=== PATIENT | female | born 1980 | race Caucasian/White ===

== ENCOUNTER → 2024-10-26 11:56 | Outpatient (CLI) | payer OTHER, SELFPAY ==
[2024-10-26 19:02] LABS: Add Manual Diff / Slide Review NO; Basophils Absolute Auto 0 /uL (0-100); Basophils Percent Auto 0.5 % (0-2); Eosinophils Absolute Auto 0 /uL (0-450); Eosinophils Percent Auto 0.6 % (2-4); Hematocrit 38.2 % (36-46); Hemoglobin 12.6 g/dL (12.0-16.0); Lymphocytes Absolute Auto 1500 /uL (1100-4500); Lymphocytes Percent Auto 23.6 % (25-40); Mean Corpuscular HGB Conc 32.9 % (30-36); Mean Corpuscular Hemoglobin 31.1 PG (26-34); Mean Corpuscular Volume 94.5 fL (80-100); Monocytes Absolute Auto 500 /uL (0-900); Monocytes Percent Auto 7.6 % (3-14); Neutrophils Absolute Auto 4400 /uL (1500-7000); Neutrophils Percent Auto 67.7 % (50-75); Platelet Count 315 X10^3/uL (150-400); Red Blood Cell Count 4.04 X10^6/uL (4.0-5.2); Red Cell Distribution Width 14.6 % (11.6-14.8); White Blood Cell Count 6.6 X10^3/uL (4.5-11.0)
[2024-10-26 19:29] LABS: HEMOLYSIS < 15 (0-50); Iron 189 ug/dL (37-170)
[2024-10-26 19:33] LABS: Alanine Aminotransferase 12 IU/L (<35); Albumin 4.4 g/dL (3.5-5.0); Albumin Globulin Ratio 1.7 (1.0-2.8); Alkaline Phosphatase 75 U/L (38-126); Aspartate Aminotransferase 32 IU/L (14-36); BUN Creatinine Ratio 20.9 (6-22); Bilirubin Total 0.6 mg/dL (0.2-1.3); Blood Urea Nitrogen 14 mg/dL (7-17); Calcium 9.4 mg/dL (8.4-10.2); Carbon Dioxide 25 mmol/L (22-32); Chloride 101 mmol/L (98-107); Estimated Glomerular Filt Rate > 60 mL/min (>60); Globulin 2.6 g/dL (1.7-4.1); Glucose 87 mg/dL (70-99); HEMOLYSIS < 15 (0-50); Potassium 4.9 mmol/L (3.4-5.1); Sodium 135 mmol/L (137-145)
[2024-10-26 19:49] LABS: Percent Iron Saturation 69 % (15-50); Total Iron Binding Capacity 272 ug/dL (265-497); Transferrin 242 mg/dL (206-381)
[2024-10-26 20:10] LABS: Ferritin 31 ng/mL (6-137)
[2024-10-26 20:16] LABS: Estradiol, Total 149.3 pg/mL
[2024-10-26 20:37] LABS: Folate 10.2 ng/mL (2.76-20.0); Vitamin B12 406 pg/mL (239-931)
== END ==
PROVIDERS: PCP Family Medicine; Visit Provider Family Medicine
DX: D64.9 Anemia, unspecified (principal); R23.2 Flushing; R00.2 Palpitations; Z13.1 Encounter for screening for diabetes mellitus
CPT/HCPCS: 80053; 82397; 82607; 82670; 82728; 82746; 83001; 83540; 83550; 85025

== ENCOUNTER → 2024-12-31 12:18 | Outpatient (CLI) | payer OTHER, SELFPAY ==
[2024-12-31 12:51] LABS: Add Manual Diff / Slide Review NO; Hematocrit 38.8 % (36-46); Hemoglobin 13.1 g/dL (12.0-16.0); Lymphocytes Absolute Auto 2300 /uL (1100-4500); Mean Corpuscular HGB Conc 33.8 % (30-36); Mean Corpuscular Hemoglobin 31.8 PG (26-34); Mean Corpuscular Volume 94.1 fL (80-100); Platelet Count 299 X10^3/uL (150-400)
[2024-12-31 18:43] LABS: Total Iron Binding Capacity 297 ug/dL (265-497)
[2024-12-31 18:48] LABS: Ferritin 32 ng/mL (6-137)
[2024-12-31 18:50] LABS: Free T4, Direct Thyroxine 0.88 ng/dL (0.78-2.19)
[2024-12-31 19:04] LABS: Free T3, Triiodothyronine Free 3.65 pg/mL (2.77-5.27); Thyroid Stimulating Hormone 1.62 uIU/mL (0.47-4.68)
[2024-12-31 19:05] LABS: Progesterone, Total 2.33 ng/mL
[2024-12-31 19:21] LABS: Estradiol, Total 46.3 pg/mL
[2025-01-03 19:43] LABS: Iron 102 ug/dL (37-170)
== END ==
PROVIDERS: PCP Family Medicine; Referring Provider Acupuncturist; Visit Provider Acupuncturist
DX: D64.9 Anemia, unspecified (principal); K59.00 Constipation, unspecified; Z13.29 Encounter for screening for other suspected endocrine disorder
CPT/HCPCS: 36415; 82670; 82728; 83540; 83550; 84144; 84439; 84443; 84481; 85025

== ENCOUNTER → 2025-03-15 12:07 | Outpatient (CLI) | payer OTHER, SELFPAY ==
--- NOTE | 2025-03-15 12:08 | DI.MRI.S_ITS ---
PROCEDURE: MR ENTEROGRAPHY PROTOCOL INDICATIONS: ABD PAIN TECHNIQUE: After the ingestion of oral contrast, coronal and axial HASTE, coronal 2-D FLASH in-and [id number] sequences. After the administration of contrast, coronal and axial VIBE or 2-D FLASH with fat saturation sequences acquired through the abdomen and pelvis. Optional diffusion weighted imaging and ADC may be performed. COMPARISON: None. FINDINGS: Image quality: Excellent. Bowel and peritoneum: No abnormal wall thickening. No luminal narrowing with upstream dilation. Image quality: Diagnostic. Lung bases: Unremarkable. Liver: No solid mass. Benign T2 hyperintense cystic lesions are present. Small portal vein to hepatic vein shunt in segment 5. Gallbladder: No gallstones or wall thickening. Biliary ducts: No biliary dilation. No evidence of PSC. Pancreas: No ductal dilation. Spleen: Size is within normal limits. Adrenal Glands: No adrenal nodules. Kidneys and Ureters: No hydronephrosis. No solid mass. No complex renal cystic lesion which requires follow up. Peritoneum: No abnormal intraperitoneal fluid. No free air. Ventral Wall: No hernia. Abdominal Nodes: No retroperitoneal or mesenteric adenopathy by size criteria. Vessels: Aorta and inferior vena cava are normal in size. Pelvis: No pelvic mass. Bones: No aggressive osseous abnormality. IMPRESSION: No imaging features of active inflammatory bowel disease. Dictated by: Dragan Mendes M.D. on 03/15/2025 at 16:28 Approved by: Dragan Mendes M.D. on 03/15/2025 at 16:33
== END ==
LOC: MRI 12:07
PROVIDERS: PCP Family Medicine; Referring Provider Internal Medicine Gastroenterology; Visit Provider Internal Medicine Gastroenterology
DX: R10.32 Left lower quadrant pain (principal); R11.0 Nausea; K59.00 Constipation, unspecified; R93.89 Abnormal findings on diagnostic imaging of other specified body structures; Z96.89 Presence of other specified functional implants
CPT/HCPCS: 72197; 74183; A9579

== ENCOUNTER → 2025-03-25 08:15 | Outpatient (CLI) | payer OTHER, SELFPAY ==
[2025-03-29 15:36] LABS: Calprotectin, Stool < 5 ug/g (0-120)
== END ==
PROVIDERS: PCP Family Medicine; Visit Provider Internal Medicine Gastroenterology
DX: R10.32 Left lower quadrant pain (principal); R11.0 Nausea; K59.00 Constipation, unspecified
CPT/HCPCS: 83993

== ENCOUNTER → 2025-03-29 14:03 | Outpatient (CLI) | payer OTHER, SELFPAY ==
[2025-03-29 19:26] LABS: HEMOLYSIS < 15 (0-50); Iron 76 ug/dL (37-170)
[2025-03-29 19:40] LABS: Percent Iron Saturation 28 % (15-50); Total Iron Binding Capacity 274 ug/dL (265-497); Transferrin 240 mg/dL (206-381)
[2025-03-29 20:03] LABS: Ferritin 28 ng/mL (6-137)
== END ==
PROVIDERS: Internal Medicine Gastroenterology; PCP Family Medicine
DX: R10.30 Lower abdominal pain, unspecified (principal); R11.0 Nausea; K59.00 Constipation, unspecified
CPT/HCPCS: 82728; 83540; 83550

== ENCOUNTER → 2025-04-14 08:00 | Outpatient (CLI) | payer OTHER, SELFPAY | PROVIDERS: Internal Medicine Gastroenterology; PCP Family Medicine | DX: K59.00 Constipation, unspecified (principal); R10.32 Left lower quadrant pain; R11.0 Nausea | CPT/HCPCS: 82656 ==